=== PATIENT | female | born 1970 | race Caucasian/White ===

== ENCOUNTER 2016-11-12 23:59 | Inpatient (IN) | payer OTHER ==
--- NOTE | ~2016-11-12 | DS ---
Unit #: [id number] #: [id number] Patient: ANTHONY PELAYO [id number] [address] [address] [id number] MR#: [id number] NAME: ANTHONY PELAYO ROOM: [facility] Age: 46 Sex: F Admission Date: 11/13/2016 : 1970 Discharge Date: 11/15/2016 Attending Physician: Martínez Salmon M.D. Primary Care Physician: Lambert Suarez M.D. DISCHARGE SUMMARY PRIMARY DIAGNOSIS Obstructive Escherichia coli pyelonephritis. SECONDARY DIAGNOSIS Left ureteral stone. PROCEDURE Cystoscopy and stent placement - Dr. Salmon, 11/13/16. DISPOSITION Home. FOLLOWUP Outpatient left ureteroscopy, laser lithotripsy and stent removal to be scheduled with Dr. Salmon in one to two weeks. DISCHARGE MEDICATIONS Prescriptions for: 1. Percocet 5/325, #30, one to two every four to six hours as needed. 2. Colace 100 mg, #30, one twice daily until done. 3. Bactrim double strength, #20, one twice daily for ten days. HISTORY This patient presented with obstructive pyelonephritis, details not entirely clear to me at time of discharge. HOSPITAL COURSE She was admitted through the emergency department, diagnosed with a distal left ureteral stone and given 2 g of intravenous Rocephin. Stent was placed by Dr. Salmon. The following day, she was improved with preliminary cultures showing Gram-negative rods. She was afebrile. Follow up laboratories were ordered. Her IV was dislodged and I ordered her an additional dose of Rocephin intramuscularly. The following morning, her white count was noted to be 14, BMP stable and E. coli growing of 100,000 colonies noted to be pansensitive. She is, thus, discharged on the following medications, in addition to her home medications, which are Zoloft and gabapentin. Dictated by... Unit #: [id number] #: [id number] Patient: ANTHONY PELAYO Kwaku Britt M.D. KELLI/cristian TD: 11/16/2016 08:42 JOB #: [id number] DISCHARGE SUMMARY Page 1 of 1 X Kwaku Britt MD DISCHARGE SUMMARY
--- NOTE | ~2016-11-12 | BMI ---
[facility] Nutrition Therapy DATE: 11/14/16 Patient: ANTHONY PELAYO Physician: ROCK Address: [address] [place] [address] DRIVE Room/Bed: [address] [place] [address], Zip: [place] [address] Admit Date: 11/13/16 Date of : [birth year] Height: 5 5 Weight: 252 114.6 HIGH BMI NOTE: ANTHROPOMETRICS: HT: 65" WT: 114.6 KG BMI: 42 INTERVENTION: 1. REGULAR DIET RECOMMENDATIONS: 1. ADD HEART HEALTHY DIET RESTRICTION IN ORDER TO PROMOTE GRADUAL WEIGHT LOSS. Respectfully, HANNAH ALVAREZ RD, LD Food and Nutritional Services [facility] cc: client file
--- NOTE | ~2016-11-12 | OR ---
Unit #: [id number] #: [id number] Patient: ANTHONY PELAYO [id number] [address] [address] [id number] I MR#: [id number] NAME: ANTHONY PELAYO ROOM: [facility] Date of Procedure: 11/13/2016 Admission Date: 11/13/2016 Surgeon: Martínez Salmon M.D. : 1970 Attending Physician: Martínez Salmon M.D. Primary Care Physician: Lambert Suarez M.D. PROCEDURE OPERATIVE NOTE PREOPERATIVE DIAGNOSES 1. Pyelonephritis. 2. UTI. 3. Left ureteral stone. POSTOPERATIVE DIAGNOSES 1. Pyelonephritis. 2. UTI. 3. Left ureteral stone. PROCEDURE PERFORMED Cystoscopy, left stent placement without string. ANESTHESIA General. PROCEDURE After informed consent, she was taken to the operating room and placed under general anesthetic, positioned in the lithotomy. Her vagina and perineum were prepped and draped in the usual sterile fashion. Cystoscopy was performed showing a normal bladder. There were no tumors, no stones, no diverticula. The entire bladder was inspected. The stone was in the distal ureter. Could not easily make it out on fluoroscopy; however, I could feel it as I maneuvered a wire past it on fluoroscopy. A 5 x 26 stent was placed without the tether attached. There was good coil in the bladder and the collecting system. The bladder was drained. A culture was sent before draining the bladder and after placing the stent. The urine coming from the left collecting system was not purulent. The patient's bladder was drained. She was taken to recovery. She will be returned to the floor. She will undergo future ureteroscopy and treatment of her stone after treating her for UTI. She tolerated the procedure well. Dictated by... Shani Rey/tatiana TD: 11/20/2016 10:19 JOB #: [id number] Unit #: [id number] #: [id number] Patient: ANTHONY PELAYO PROCEDURE OPERATIVE NOTE Page 1 of 1 X Martínez Salmon MD PROCEDURE OPERATIVE NOTE
--- NOTE | ~2016-11-12 | CT2 ---
[facility] A Service of [facility] & [facility] RADIOLOGY TEXT RESULTS PATIENT: ANTHONY PELAYO [facility] [id number] [birth year] UNIT #: [id number] AGE: [address]: Fany Calloway MD SEX: F ORDER DR: [id number] [facility] [address] [place], [place] [address] [id number] E MR#: [id number] Acc #: [id number] NAME: ANTHONY PELAYO : 1970 SEX: F STUDY DATE/TIME: 11/13/2016 02:21 UNIT: [facility] ROOM: STUDY DESCRIPTION: CT Abd and Pelv W Cont Attending Physician: Julio Cesar Huang M.D. Ordering Physician: Tuan Krueger D.O. Primary Care Physician: Lambert Suarez M.D. MEDICAL IMAGING REPORT This report is preliminary unless electronic signature is present EXAM CT abdomen and pelvis 11/13/2016 02:21 INDICATION Nausea, abdominal pain with headache and chills for 1 week. Pain is currently 8/10. TECHNIQUE Axial images were obtained through the abdomen and pelvis following the IV administration of contrast. Multiplanar reformats were obtained. Comparison made with 02/26/2015. This CT examination was performed with one or more of the following radiation dose reduction techniques: automatic exposure control, adjustment of mA and/or kV according to patient size, and iterative reconstruction. FINDINGS ABDOMEN: Lung bases are clear. Gallbladder is normal. No biliary obstruction is seen. There are subtle areas of decreased enhancement in the upper pole and lower poles of the left kidney. This is presumably secondary to pyelonephritis. Additionally, there is a nonobstructing stone at the left ureterovesical junction measuring 4.5 mm in size. Remaining solid organs are normal. There is no free fluid or adenopathy. The unopacified GI tract is normal. PELVIS: The urinary bladder is normal. No free fluid is seen. The unopacified GI tract including the appendix is normal. Multiple bilateral ovarian cysts are again seen. The largest on the right measures about 4.5 cm. The largest on the left measures about 2.3 cm. Multiple cysts were seen on the ovaries on the prior CT as well. Again seen are bilateral L5 pars defects with grade 2 spondylolisthesis of L5 on S1. This appears largely stable. IMPRESSION [facility]. [facility] A Service of [facility] & [facility] RADIOLOGY TEXT RESULTS PATIENT: ANTHONY PELAYO LOCATION: [facility] [id number] : [birth year] UNIT #: [id number] AGE: [address]: Fany Calloway MD SEX: F ORDER DR: 1. Patchy enhancement in the left kidney concerning for pyelonephritis. 2. Nonobstructing 4.5 mm stone at the left ureterovesical junction. 3. Normal unopacified GI tract, including the appendix. 4. Multiple bilateral ovarian cysts, also seen to a large degree on the patient's prior CT scan. The largest on the right side currently measures 4.5 cm, the largest on the left side measures about 2.3 cm. Dictated by... Kwaku Peña Jr., M.D. THIS IS AN ELECTRONICALLY VERIFIED REPORT Kwaku Peña Jr., M.D. at 11/13/2016 6:08 AM ZOILA/prerna TD: 11/13/2016 05:58 JOB #: [id number] MEDICAL IMAGING REPORT Page 1 of 1 COPY
[~2016-11-12 23:59] MED LIST: ALBUTEROL17 GM INH; BENADRYL PO; CEPHALEXIN500 M1 PO; DICLOFENAC PO; LORTAB 5/500 TA1 TA1 PO; NYSTATIN15 GM OINT EXT; ORUDIS75 M1 PO; PAXIL PO; PHENERGAN PO; PHENERGAN PR; PHENERGAN25 M1 PO; RISPERIDONE PO; ULTRAM PO; VICODIN 5/500 T1 TAB PO; VICODIN PO; VISTARIL PO; ZOFRAN PO
[2016-11-13 01:14] LABS: BASOPHIL# 0.1 X10e3 (0-0.3); BASOPHIL% 0.5 % (0-2.5); EOSINOPHIL# 0.3 X10e3 (0-0.7); EOSINOPHIL% 2.1 % (0.0-7.0); HEMATOCRIT 36.1 % (35.0-45.0); HEMOGLOBIN 11.9 gm/dL (12.0-16.0); LYMPHOCYTE# 5.4 X10e3 (1.0-3.5); LYMPHOCYTE% 39.4 % (17.0-45.0); MEAN CELL VOLUME 87.7 FL (83-96); MEAN CORPUSCULAR HEMOGLOBIN 28.9 PG (28-34); MEAN CORPUSCULAR HGB CONC 32.9 g/dL (30-36); MEAN PLATELET VOLUME 7.1 FL (6.5-11.5); MONOCYTE# 0.7 X10e3 (0-1.0); MONOCYTE% 5.3 % (3.0-12.0); NEUTROPHIL# 7.2 X10e3 (1.5-7.1); NEUTROPHIL% 52.7 % (40-75); PLATELET COUNT 473 X10e3 (140-420); RED BLOOD COUNT 4.12 X10e (3.90-5.30); RED CELL DISTRIBUTION WIDTH 14.2 % (11.0-15.5); WHITE BLOOD COUNT 13.8 X10e3 (4.0-10.5)
[2016-11-13 01:18] LABS: DIFF IND NO
[2016-11-13 01:21] LABS: URINE SOURCE CLEAN CATCH
[2016-11-13 01:40] LABS: URINE APPEARANCE TURBID; URINE BILIRUBIN NEG (NEG); URINE BLOOD 1+ (NEG); URINE COLOR DK YELLOW; URINE GLUCOSE NEG (NEG); URINE KETONE NEG (NEG); URINE LEUKOCYTE ESTERASE 3+ (NEG); URINE NITRATE POS (NEG); URINE PH 6.5 (5-8); URINE PROTEIN TRACE (NEG); URINE SPECIFIC GRAVITY 1.016 (1.003-1.035); URINE UROBILINOGEN 0.2 MG/DL (NEG)
[2016-11-13 01:43] LABS: CULTURE INDICATED? YES; URINE BACTERIA AUWI 4+ (NEGATIVE); URINE SQUAMOUS EPITHELIAL CELL FEW /[HPF]; UWBCS1 AUWI INNUM (0-5)
[2016-11-13 01:58] LABS: ALBUMIN SERUM 2.5 g/dL (3.5-5.0); BILIRUBIN, DIRECT 0.2 mg/dL (0.0-0.2); BILIRUBIN,INDIRECT 0.8 mg/dL (0.0-0.9); CALCIUM SERUM 8.8 mg/dL (8.4-10.2); CREATININE SERUM 0.5 mg/dL (0.6-1.4); GLOM FILT RATE Estimated 116.1 mL/min (>60); POTASSIUM 3.9 mmol/L (3.5-5.1); PROTEIN TOTAL SERUM 7.6 g/dL (6.0-8.3)
[2016-11-13] MEDS ORDERED: GABAPENTIN800 MG PO (03:17)
[2016-11-13] MEDS ORDERED: ZOLOFT50 MG PO (03:18)
[2016-11-14 10:55] LABS: HEMATOCRIT 34.6 % (35.0-45.0); HEMOGLOBIN 11.3 gm/dL (12.0-16.0); MEAN CELL VOLUME 87.7 FL (83-96); MEAN CORPUSCULAR HEMOGLOBIN 28.6 PG (28-34); MEAN CORPUSCULAR HGB CONC 32.6 g/dL (30-36); MEAN PLATELET VOLUME 6.5 FL (6.5-11.5); RED BLOOD COUNT 3.95 X10e (3.90-5.30); RED CELL DISTRIBUTION WIDTH 14.1 % (11.0-15.5); WHITE BLOOD COUNT 14.1 X10e3 (4.0-10.5)
[2016-11-14 11:26] LABS: BUN/CREATININE RATIO 15.71; CALCIUM SERUM 8.6 mg/dL (8.4-10.2); CREATININE SERUM 0.7 mg/dL (0.6-1.4); GLOM FILT RATE Estimated 103.9 mL/min (>60); POTASSIUM 3.6 mmol/L (3.5-5.1)
[2016-11-15] MEDS ORDERED: PERCOCET 5/321 UDTAB PO (09:32)
[2016-11-15] MEDS ORDERED: BACTRIM DS TAB1 EACH PO (09:33)
[2016-11-15] MEDS ORDERED: DOCUSATE SODIU100 MG PO (09:33)
== END 2016-11-15 12:56 | disposition home or self-care (01) | DRG 690 ==
LOC: CED 23:59 → CEDOF 11-13 04:00 → C3A PCU 11-13 09:29 → C2A 11-14 18:09
PROVIDERS: Urology
PROC: 0T778DZ Dilation of Left Ureter with Intraluminal Device, Via Natural or Artificial Opening Endoscopic (ICD-10-PCS; principal; 2016-11-13 07:30)
DX: N10 Acute pyelonephritis (principal); N20.1 Calculus of ureter; B96.20 Unspecified Escherichia coli [E. coli] as the cause of diseases classified elsewhere; F41.9 Anxiety disorder, unspecified; F32.9 Major depressive disorder, single episode, unspecified; F17.210 Nicotine dependence, cigarettes, uncomplicated; Z98.51 Tubal ligation status
CPT/HCPCS: 36415; 74177; 80048; 80076; 81003; 82947; 83690; 84703; 85025; 85027; 87086; 87088; 87186; 96361; 96374; 96375; 96376; 99285; C2617; J0330; J0696; J1100; J1170; J1650; J1885; J2250; J2270; J2405; J3010; Q9967

== ENCOUNTER 2016-11-19 15:11 | Emergency (ER) | payer OTHER ==
--- NOTE | ~2016-11-19 | US134 ---
[facility] A Service of [facility] RADIOLOGY TEXT RESULTS PATIENT: ANTHONY PELAYO LOCATION: [facility] : [birth year] UNIT #: [id number] AGE: [address]: Radha Deleon MD SEX: F ORDER DR: [id number] [facility] [address] [place], [place] [address] [id number] E MR#: [id number] Acc #: [id number] NAME: ANTHONY PELAYO : 1970 SEX: F STUDY DATE/TIME: 11/19/2016 16:25 UNIT: [facility] ROOM: STUDY DESCRIPTION: US Transvaginal Attending Physician: Radha Deleon M.D. Ordering Physician: Radha Deleon M.D. Primary Care Physician: Yassine Mera M.D. MEDICAL IMAGING REPORT This report is preliminary unless electronic signature is present EXAM Pelvic ultrasound, 11/19 INDICATIONS Vaginal bleeding over the last 6 days. Pelvic pain as well. FINDINGS Transvaginal imaging is performed of the pelvis in multiple planes. Comparison made with CT pelvis from 11/13/2016. Winding Inspector And Tester notes a difficult exam due to patient discomfort. Uterus measures about 7.4 x 4.1 x 4.4 cm. Endometrial stripe is normal at 5 mm. Myometrium unremarkable. The right ovary demonstrates numerous cysts. The largest of these measures up to 4.5 cm and presumably corresponds to the lesions seen on the recent CT. Numerous, smaller cysts are present. The left ovary cannot be identified today. IMPRESSION 1. The uterus and endometrial stripe are normal. 2. Numerous right ovarian cysts, the largest of which measures about 4.5 cm as seen on the recent CT. The right ovary does show perfusion by Doppler. 3. The left ovary cannot be identified. No adnexal masses are seen. Dictated by... Kwaku Peña Jr., M.D. THIS IS AN ELECTRONICALLY VERIFIED REPORT Kwaku Peña Jr., M.D. at 11/20/2016 7:26 AM SATINDERK/kaylynn TD: 11/19/2016 20:22 [facility] A Service of [facility] & [facility] RADIOLOGY TEXT RESULTS PATIENT: ANTHONY PELAYO LOCATION: [facility] : [birth year] UNIT #: [id number] AGE: [address]: Radha Deleon MD SEX: F ORDER DR: JOB #: [id number] MEDICAL IMAGING REPORT Page 1 of 1 COPY
[2016-11-19 15:09] LABS: URINE SOURCE CLEAN CATCH
[~2016-11-19 15:11] MED LIST changes: +BACTRIM DS TAB1 EACH PO; +DOCUSATE SODIU100 MG PO; +GABAPENTIN800 MG PO; +PERCOCET 5/321 UDTAB PO; +ZOLOFT50 MG PO
[2016-11-19 15:15] LABS: URINE APPEARANCE CLOUDY; URINE BILIRUBIN NEG (NEG); URINE BLOOD 3+ (NEG); URINE COLOR YELLOW; URINE GLUCOSE NEG (NEG); URINE KETONE NEG (NEG); URINE LEUKOCYTE ESTERASE 2+ (NEG); URINE NITRATE NEG (NEG); URINE PH 5.5 (5-8); URINE PROTEIN 2+ (NEG); URINE SPECIFIC GRAVITY 1.015 (1.003-1.035); URINE UROBILINOGEN 0.2 MG/DL (NEG)
[2016-11-19 15:16] LABS: CULTURE INDICATED? YES; URBCS1 AUWI 200-300 /[HPF] (0-2); URINE BACTERIA AUWI NEG (NEGATIVE); URINE SQUAMOUS EPITHELIAL CELL OCC /[HPF]
[2016-11-19 15:27] LABS: CALCIUM SERUM 9.8 mg/dL (8.4-10.2); GLOM FILT RATE Estimated 67.5 mL/min (>60); POTASSIUM 4.4 mmol/L (3.5-5.1)
[2016-11-19 16:01] LABS: BASOPHIL# 0.1 X10e3 (0-0.3); BASOPHIL% 0.6 % (0-2.5); DIFF IND NO; EOSINOPHIL# 0.1 X10e3 (0-0.7); EOSINOPHIL% 1.4 % (0.0-7.0); HEMATOCRIT 43.7 % (35.0-45.0); HEMOGLOBIN 14.2 gm/dL (12.0-16.0); LYMPHOCYTE% 29.6 % (17.0-45.0); MEAN CELL VOLUME 88.8 FL (83-96); MEAN CORPUSCULAR HEMOGLOBIN 28.9 PG (28-34); MEAN CORPUSCULAR HGB CONC 32.6 g/dL (30-36); MEAN PLATELET VOLUME 7.1 FL (6.5-11.5); MONOCYTE# 0.6 X10e3 (0-1.0); MONOCYTE% 6.2 % (3.0-12.0); NEUTROPHIL# 6.3 X10e3 (1.5-7.1); NEUTROPHIL% 62.2 % (40-75); PLATELET COUNT 595 X10e3 (140-420); RED BLOOD COUNT 4.93 X10e (3.90-5.30); RED CELL DISTRIBUTION WIDTH 14.7 % (11.0-15.5); WHITE BLOOD COUNT 10.1 X10e3 (4.0-10.5)
[2016-11-21 23:03] LABS: CHLAMYDIA TRACH Not Detected (Not Detected); N GONOR Not Detected (Not Detected)
== END 2016-11-19 18:15 | disposition home or self-care (01) ==
LOC: CED 15:11
PROVIDERS: Emergency Medicine; Student in an Organized Health Care Education/Training Program
DX: N83.201 Unspecified ovarian cyst, right side (principal); N93.9 Abnormal uterine and vaginal bleeding, unspecified; F17.210 Nicotine dependence, cigarettes, uncomplicated; Z88.8 Allergy status to other drugs, medicaments and biological substances; Z79.899 Other long term (current) drug therapy
CPT/HCPCS: 36415; 76830; 80048; 81003; 85025; 85730; 87086; 87491; 87591; 87808; 87905; 99284

== ENCOUNTER → 2016-11-23 | Day surgery (SDC) | payer OTHER ==
--- NOTE | ~2016-11-23 | OR ---
Unit #: [id number] #: [id number] Patient: ANTHONY PELAYO [id number] [address] [address] [id number] MR#: [id number] NAME: ANTHONY PELAYO ROOM: Date of Procedure: 11/23/2016 Admission Date: 11/23/2016 Surgeon: Martínez Salmon M.D. : 1970 Attending Physician: Martínez Salmon M.D. Referring Physician: Martínez Salmon M.D. Primary Care Physician: Yassine Mera M.D. OPERATIVE REPORT PREOPERATIVE DIAGNOSIS Left ureteral stone. PREOPERATIVE DIAGNOSIS Left ureteral stone. PROCEDURES PERFORMED Cystoscopy, left ureteroscopy, laser lithotripsy, basket extraction, stent replacement. DESCRIPTION OF PROCEDURE After informed consent, she was taken to the operating room, placed in general anesthetic, positioned in lithotomy. Her vagina and perineum were prepped and draped in usual sterile fashion. Cystoscopy was performed. The stent was visible exiting the left ureteral orifice. Using a grasper, the stent was pulled out to the meatus and a wire was placed inside the stent and the stent was removed under fluoroscopy. Next, the rigid ureteroscope was placed alongside of the safety wire, and the stone was visible in the distal ureter. Using a holmium laser, the stone was broken up into smaller pieces. A basket was used and those pieces were removed without difficulty. I inspected the other portions of the ureter. There were no stone fragments. The ureter was then stented again with a 5 x 26 double-J stent. The tether was removed. There was a good coil in the bladder and collecting system. The patient's bladder was drained. She will be taken to recovery. She will return to see me as an outpatient for cystoscopy and stent removal. Dictated by... Shani ReyB/modl TD: 11/24/2016 02:06 JOB #: [id number] Unit #: [id number] #: [id number] Patient: ANTHONY PELAYO OPERATIVE REPORT Page 1 of 1 X Martínez Salmon MD PROCEDURE OPERATIVE NOTE
== END | disposition home or self-care (01) ==
LOC: CSUR 12:40
PROVIDERS: Urology
DX: N20.1 Calculus of ureter (principal); J45.909 Unspecified asthma, uncomplicated
CPT/HCPCS: 82365; 84703; 88300; C1758; C2617; J1956; J2250; J2270; J2765

== ENCOUNTER 2017-03-25 17:47 | Emergency (ER) | payer OTHER ==
[~2017-03-25] VITALS: Ht 162.6 cm; Wt 86.2 kg
--- NOTE | ~2017-03-25 | CT4 ---
[facility] A Service of [facility] & [facility] RADIOLOGY TEXT RESULTS PATIENT: ANTHONY PELAYO LOCATION: [facility] : 70 UNIT #: [id number] AGE: [address]: Benita Ramirez MD SEX: F ORDER DR: [id number] [facility] [address] [place], [place] [address] [id number] E MR#: [id number] Acc #: [id number] NAME: ANTHONY PELAYO : 1970 SEX: F STUDY DATE/TIME: 03/25/2017 21:21 UNIT: [facility] ROOM: STUDY DESCRIPTION: CT Abd and Pelv Wo Cont Attending Physician: Benita Ramirez M.D. Ordering Physician: Benita Ramirez M.D. Primary Care Physician: Yassine Mera M.D. MEDICAL IMAGING REPORT This report is preliminary unless electronic signature is present EXAM CT scan of the abdomen and pelvis without contrast, 03/25/2017. HISTORY Generalized abdominal pain with nausea and vomiting for 4 days, worsening. Evaluate for obstructing renal calculus. TECHNIQUE Spiral CT was performed through the abdomen and pelvis without oral or intravenous contrast administration using renal stone protocol. This CT exam was performed with one or more of the following radiation dose reduction techniques: automatic exposure control, adjustment of mA and/or kV according to patient size, and iterative reconstruction. FINDINGS ABDOMEN: There is no obstructing renal or ureteral calculus. The kidneys are normal bilaterally. The visualized liver, spleen, pancreas, gallbladder and biliary tree and adrenal glands are normal. PELVIS FINDINGS: The gut, mesenteric and elmer structures are normal. There is no free fluid in the abdomen or pelvis. Note is again made of a 6.1 cm complex cystic solid mass lesion in the right adnexal region unchanged in appearance compared with previous CT scan of the abdomen and pelvis, 03/23/2017. Ovarian neoplasm is not excluded on the basis of this examination. Correlation with pelvic ultrasound is recommended. There is also a 3.4 cm cystic lesion on the left ovary. Images of the lung bases are normal. IMPRESSION 1. No obstructing renal or ureteral calculus. 2. No significant interval change in the 6.1 cm complex cystic solid mass in the right adnexal region compared with 03/23/2017. Ovarian neoplasm is not excluded on the basis of this examination. Clinical [facility]. [facility] A Service of [facility] RADIOLOGY TEXT RESULTS PATIENT: ANTHONY PELAYO LOCATION: [facility] : 70 UNIT #: [id number] AGE: [address]: Benita Ramirez MD SEX: F ORDER DR: correlation strongly recommended. Recommend correlation with pelvic ultrasound. 3. 3.4 cm cyst on the left ovary. Again pelvic ultrasound recommended. Dictated by... Enrique Hammond M.D. THIS IS AN ELECTRONICALLY VERIFIED REPORT Enrique Hammond M.D. at 03/26/2017 2:17 PM MARLENI/richa TD: 03/26/2017 10:51 JOB #: [id number] MEDICAL IMAGING REPORT Page 1 of 1 COPY
[2017-03-25 18:12] LABS: URINE SOURCE CLEAN CATCH
[2017-03-25 18:21] LABS: BASOPHIL# 0.1 X10e3 (0-0.3); BASOPHIL% 0.6 % (0-2.5); EOSINOPHIL# 0.1 X10e3 (0-0.7); EOSINOPHIL% 0.4 % (0.0-7.0); HEMATOCRIT 44.2 % (35.0-45.0); HEMOGLOBIN 14.7 gm/dL (12.0-16.0); LYMPHOCYTE# 2.9 X10e3 (1.0-3.5); LYMPHOCYTE% 16.6 % (17.0-45.0); MEAN CELL VOLUME 87.2 FL (83-96); MEAN CORPUSCULAR HEMOGLOBIN 29.1 PG (28-34); MEAN CORPUSCULAR HGB CONC 33.3 g/dL (30-36); MEAN PLATELET VOLUME 7.3 FL (6.5-11.5); MONOCYTE# 0.9 X10e3 (0-1.0); MONOCYTE% 5.1 % (3.0-12.0); NEUTROPHIL# 13.5 X10e3 (1.5-7.1); NEUTROPHIL% 77.3 % (40-75); PLATELET COUNT 464 X10e3 (140-420); RED BLOOD COUNT 5.07 X10e (3.90-5.30); RED CELL DISTRIBUTION WIDTH 13.7 % (11.0-15.5); WHITE BLOOD COUNT 17.5 X10e3 (4.0-10.5)
[2017-03-25 18:21] LABS: URINE APPEARANCE HAZY; URINE BLOOD 2+ (NEG); URINE COLOR YELLOW; URINE GLUCOSE NORM (NORM); URINE KETONE 1+ (NEG); URINE LEUKOCYTE ESTERASE NEG (NEG); URINE NITRATE POS (NEG); URINE PROTEIN 1+ (NEG); URINE UROBILINOGEN 4 MG/DL (NORM)
[2017-03-25 18:23] LABS: DIFF IND YES
[2017-03-25 18:26] LABS: URINE BILIRUBIN POS (NEG)
[2017-03-25 18:34] LABS: CULTURE INDICATED? YES; URINE BACTERIA AUWI 2+ (NEGATIVE)
[2017-03-25 18:51] LABS: ALBUMIN SERUM 4.4 g/dL (3.5-5.0); BILIRUBIN, DIRECT 0.1 mg/dL (0.0-0.2); BILIRUBIN,INDIRECT 0.4 mg/dL (0.0-0.9); BILIRUBIN,TOTAL 0.5 mg/dL (0.2-2.0); BUN/CREATININE RATIO 17.5; CALCIUM SERUM 9.2 mg/dL (8.4-10.2); CREATININE SERUM 0.8 mg/dL (0.6-1.4); GLOM FILT RATE Estimated 88.5 mL/min (>60); PLATELET ESTIMATE NORMAL (NORMAL); PROTEIN TOTAL SERUM 8.3 g/dL (6.0-8.3)
== END 2017-03-25 23:50 | disposition home or self-care (01) ==
LOC: CED 17:47
PROVIDERS: Emergency Medicine
DX: R19.00 Intra-abdominal and pelvic swelling, mass and lump, unspecified site (principal)
CPT/HCPCS: 36415; 74176; 80048; 80076; 81003; 83690; 85025; 87086; 96361; 96374; 96375; 99284; J0696; J1885; J2270; J2405